=== PATIENT | female | born 1970 | race Caucasian/White ===

== ENCOUNTER 2021-10-27 07:57 | Emergency (ER) | payer BC, SELFPAY | END 2021-10-27 08:36 | disposition home or self-care (01) | LOC: CSHERS 07:57 | DX: J06.9 Acute upper respiratory infection, unspecified (principal); J32.9 Chronic sinusitis, unspecified; M79.10 Myalgia, unspecified site; D64.9 Anemia, unspecified; Z87.891 Personal history of nicotine dependence; K21.9 Gastro-esophageal reflux disease without esophagitis; E03.9 Hypothyroidism, unspecified; G43.909 Migraine, unspecified, not intractable, without status migrainosus | CPT/HCPCS: 99283 ==

== ENCOUNTER 2021-12-01 06:05 | Emergency (ER) | payer SELFPAY ==
[2021-12-01] MEDS ORDERED: Prochlorperazine 10 MG/2 ML VIAL ONE (07:33)
[2021-12-01] MEDS ORDERED: diphenhydrAMINE 50 MG/ML VIAL ONE (07:34)
[2021-12-01 08:02] LABS: Bilirubin Neg (Negative); Blood, Urine 25 (Negative); Clarity Clear (Clear); Glucose, Urine (Dipstick) Normal (Negative); Ketone, Urine Negative (Negative); Leukocyte Negative (Negative); Nitrite Negative (Negative); Protein, Urine (Dipstick) Negative (Neg-Trace); Urobilinogen Normal mg/dL (Less than 2)
[2021-12-01 08:17] LABS: Bacteria/HPF 2+ HPF (None Seen); RBC/HPF 0-3 HPF (0-3); Squamous Epithelial 0-3 HPF (0-3); WBC/HPF None Seen HPF (0-3)
[2021-12-01 15:36] LABS: SARS-CoV-2 PCR by NAA DETECTED (NotDetected)
== END 2021-12-01 09:13 | disposition home or self-care (01) ==
LOC: CSHERS 06:05
DX: U07.1 COVID-19 (principal); G43.909 Migraine, unspecified, not intractable, without status migrainosus; E03.9 Hypothyroidism, unspecified; Z87.891 Personal history of nicotine dependence
CPT/HCPCS: 81003; 81015; 96365; 96366; 96375; J0780; J1200; U0003; U0005

== ENCOUNTER 2021-12-02 13:02 | Inpatient (IN) | payer SELFPAY ==
[~2021-12-02 13:02] MED LIST: Adenosine 6 MG/2 ML VIAL ONE; Atropine Sulfate 1 mg/10 ml Syringe ONE; Calcium Chloride 1 GM/10 ML Abboject SYRINGE ONE; EPINEPHrine 1 MG/10 ML Abboject SYRINGE ONE; EPINEPHrine 1 MG/ML AMP ONE; Sodium Bicarb 50 MEQ/50 ML Abboject 8.4% SYRINGE ONE
[2021-12-02 13:58] LABS: Bilirubin Neg (Negative); Blood, Urine 10 (Negative); Clarity Slightly Cloudy (Clear); Glucose, Urine (Dipstick) Normal (Negative); Ketone, Urine 5 mg/dL (Negative); Leukocyte Negative (Negative); Nitrite Negative (Negative); Protein, Urine (Dipstick) 30 mg/dl (Neg-Trace); Specific Gravity, Urine 1.025 (1.002-1.036)
[2021-12-02 14:05] LABS: Amphetamine Not Detected (NotDetected); Barbiturates Screen Not Detected (NotDetected); Benzodiazepine Screen Not Detected (NotDetected); Cocaine Metabolite Screen Not Detected (NotDetected); Methadone Not Detected (NotDetected); Methamphetamine Not Detected (NotDetected); Opiate Screen Not Detected (NotDetected); Oxycodone Screen Not Detected (NotDetected); Phencyclidine (PCP) Not Detected (NotDetected); THC/Cannabinoid Screen Not Detected (NotDetected); Tricyclic Screen Not Detected (NotDetected)
[2021-12-02 14:08] LABS: Bacteria/HPF 4+ HPF (None Seen); RBC/HPF 0-3 HPF (0-3)
[2021-12-02] MEDS ORDERED: Ondansetron PF 4 MG/2 ML Vial ONE (14:30)
[2021-12-02 14:33] LABS: #Monocytes 1.4 10x3/uL (0.0-1.1); #Neutrophils 15.9 10x3/uL (1.5-8.4); %Basophils 0.2 % (0.0-2.0); %Lymphocytes 3.7 % (18.0-47.0); %Monocytes 7.8 % (0.0-10.0); %Neutrophils 87.9 % (40.0-75.0); Hemoglobin 13.7 g/dL (12.0-15.5); Mean Corpuscular HGB CONC 25.7 g/dL (32.0-36.0); Mean Corpuscular Hemoglobin 17.8 pg (27.0-33.0); Mean Corpuscular Volume 69.4 fl (81.6-98.3); Platelet Count 284 10x3/uL (150-450); RBC Distribution Width 25.2 % (11.5-14.5)
[2021-12-02 14:40] LABS: Acetaminophen Less than 6.0 mcg/mL (10.0-30.0); Alcohol 10 mg/dL (Less than 10); Salicylate Less than 8.0 mg/dL (15.0-30.0)
[2021-12-02 14:44] LABS: ALT (SGPT) 9 U/L (8-55); AST (SGOT) 25 U/L (5-34); Albumin 3.2 g/dL (3.5-5.0); Alkaline Phosphatase 96 U/L (40-110); Anion Gap 17 mmol/L (10-20); BUN (Urea Nitrogen) 18 mg/dL (7.0-18.7); Bilirubin, Total 0.3 mg/dL (0.2-1.2); Calc. Creatinine Clearance 0 mL/min (70-130); Calcium 8.4 mg/dL (7.8-10.44); Carbon Dioxide 18 mmol/L (22-29); Chloride 105 mmol/L (98-107); Globulin 3.6 g/dL (2.4-3.5); Glucose 187 mg/dL (70-105); Potassium 4.4 mmol/L (3.5-5.1); Protein, Total 6.8 g/dL (6.0-8.3); Sodium 136 mmol/L (136-145)
[2021-12-02 14:52] LABS: Platelet Morphology Comment Appears Adequate
[2021-12-02 14:55] LABS: Anisocytosis SLIGHT = 6-15 cells (100X) (0-5/hpf); Hypochromia SLIGHT = 6-15 cells (100X) (0-5/hpf); Macrocytosis SLIGHT = 6-15 cells (100X) (0-5/hpf); Microcytosis SLIGHT = 6-15 cells (100X) (0-5/hpf); Polychromasia SLIGHT = 2-3 cells (100X) (0-2/hpf); Target Cells SLIGHT = 2-5 cells (100X) (0-1/hpf)
[2021-12-02 14:56] LABS: Elliptocytes SLIGHT = 2-5 cells (100X) (0-1/hpf)
[2021-12-02 15:27] LABS: CKMB 3.5 ng/mL (0-6.6)
[2021-12-02 16:10] LABS: Troponin I 0.209 ng/mL (< 0.028)
[2021-12-02] MEDS ORDERED: Promethazine HCl 25 MG/ML VIAL ONE (16:14)
[2021-12-02] MEDS ORDERED: Norepinephrine 8 MG/0.9% NS 250 ML ONE (17:38)
[2021-12-02 19:14] LABS: Lactic Acid 5.4 mmol/L (0.5-2.2)
[2021-12-02] MEDS ORDERED: Norepinephrine 8 MG/0.9% NS 250 ML IVPB SCH (21:30)
[2021-12-02] MEDS ORDERED: Dexamethasone 4 mg/ml Vial SLOW IVP SCH (21:30)
[2021-12-02] MEDS ORDERED: Cefepime 2 GM in Sodium Chloride 0.9% 100 ML IVPB SCH (22:00)
[2021-12-02] MEDS ORDERED: metroNIDAZOLE 500 MG in Premix Bag 1 BAG IVPB SCH (22:00)
[2021-12-02 23:06] LABS: Actual Bicarbonate (HCO3a) 7.9 mEq/L (22-28); Base Excess (BEa) -22.1 mEq/L (-2.0 to +3.0); CO2 Tension 32.2 mmHg (35.0-45.0); Calcium, Ionized (arterial) 2.74 mmol/L (1.12-1.30); Hemoglobin (Hb) 12.2 g/dL (12.0-16.0); O2 Tension (PaO2), arterial 224.5 mmHg (80.0-100.0); Potassium - ABG Lab 4.9 mmol/L (3.70-5.30); Puncture Site Arterial Line; pH, Arterial 7.01 (7.35-7.45)
[2021-12-03] MEDS ORDERED: Enoxaparin Sodium 40 MG/0.4 ML SYRINGE SC SCH (09:00)
[2021-12-03] MEDS ORDERED: Dexamethasone 4 mg/ml Vial SLOW IVP SCH (09:00)
[2021-12-03] MEDS ORDERED: Pantoprazole 40 MG VIAL IVP SCH (09:00)
[2021-12-03] MEDS ORDERED: Vancomycin HCl 1.25 GM in Sodium Chloride 0.9% 250 ML 300 ML IVPB SCH (18:00)
== END 2021-12-02 23:00 | disposition expired | DRG 871 ==
LOC: CSHERS 13:02 → CSHICU 21:16
PROVIDERS: ADMIT Family Medicine; ATTEND Family Medicine
PROC: 3E033XZ Introduction of Vasopressor into Peripheral Vein, Percutaneous Approach (ICD-10-PCS; principal; 2021-12-02)
PROC: 8E0ZXY6 Isolation (ICD-10-PCS; 2021-12-02)
PROC: 5A12012 Performance of Cardiac Output, Single, Manual (ICD-10-PCS; 2021-12-02)
PROC: 0BH17EZ Insertion of Endotracheal Airway into Trachea, Via Natural or Artificial Opening (ICD-10-PCS; 2021-12-02)
PROC: 5A1935Z Respiratory Ventilation, Less than 24 Consecutive Hours (ICD-10-PCS; 2021-12-02)
PROC: 04HY32Z Insertion of Monitoring Device into Lower Artery, Percutaneous Approach (ICD-10-PCS; 2021-12-02)
PROC: 06HY33Z Insertion of Infusion Device into Lower Vein, Percutaneous Approach (ICD-10-PCS; 2021-12-02)
PROC: 3E0333Z Introduction of Anti-inflammatory into Peripheral Vein, Percutaneous Approach (ICD-10-PCS; 2021-12-02)
DX: A41.9 Sepsis, unspecified organism (principal); R65.21 Severe sepsis with septic shock; U07.1 COVID-19; N39.0 Urinary tract infection, site not specified; I46.9 Cardiac arrest, cause unspecified; R00.1 Bradycardia, unspecified; E03.9 Hypothyroidism, unspecified; E86.0 Dehydration; R79.89 Other specified abnormal findings of blood chemistry; F41.9 Anxiety disorder, unspecified; F31.9 Bipolar disorder, unspecified; K21.9 Gastro-esophageal reflux disease without esophagitis; F17.210 Nicotine dependence, cigarettes, uncomplicated; Z60.2 Problems related to living alone; Z79.899 Other long term (current) drug therapy; Z79.890 Hormone replacement therapy; Z88.1 Allergy status to other antibiotic agents; Z90.49 Acquired absence of other specified parts of digestive tract; Z98.84 Bariatric surgery status; Z87.440 Personal history of urinary (tract) infections
CPT/HCPCS: 36415; 70450; 71045; 71275; 80053; 80306; 80307; 81003; 81015; 82140; 82553; 82805; 83605; 84484; 85025; 87040; 87086; 93005; 94760; J0153; J0171; J0461; J2405; J2550; J7620